=== PATIENT | male | born 1970 | race Caucasian/White ===

== ENCOUNTER → 2022-05-12 12:43 | Outpatient (BNVA) | payer OTHER, SELFPAY | PROVIDERS: PCP Internal Medicine; Visit Provider Internal Medicine | DX: M79.18 Myalgia, other site (principal) | CPT/HCPCS: 99202 ==

== ENCOUNTER → 2022-05-19 09:59 | Outpatient (BNVA) | payer OTHER, SELFPAY | PROVIDERS: PCP Internal Medicine; Visit Provider Internal Medicine | DX: S46.211A Strain of muscle, fascia and tendon of other parts of biceps, right arm, initial encounter (principal); X58.XXXA Exposure to other specified factors, initial encounter | CPT/HCPCS: 99213 ==

== ENCOUNTER → 2022-05-27 07:59 | Outpatient (BNVA) | payer OTHER, SELFPAY | PROVIDERS: PCP Internal Medicine; Visit Provider Internal Medicine | DX: M79.18 Myalgia, other site (principal) | CPT/HCPCS: 99213 ==

== ENCOUNTER 2022-05-27 11:54 | Outpatient (REF) | payer OTHER, SELFPAY ==
--- NOTE | ~2022-05-27 | MR_ITS ---
EXAMINATION: MRI OF THE RIGHT ELBOW WITHOUT CONTRAST CLINICAL INFORMATION: Lifting injury. [place] pop. Pain distal biceps. Evaluate for tear. COMPARISON: None TECHNIQUE: MRI of the right elbow was performed without contrast high-field MRI scanner. FINDINGS: muscles/tendons: There is a complete versus high-grade insertional tear of the distal biceps tendon. The torn portion of the tendon is retracted approximately 10 mm . The retracted portion of the tendon is enlarged. There there may be a thin portion of tendon tissue versus fibrous tissue still attached to the radius. There is increased fluid in the bicipital radialis bursa. There is mild edema at the musculotendinous junction indicative of additional intramuscular partial tearing Common extensor tendon: Minimal heterogeneity compatible tendinosis. No measurable defect. Remaining muscles and tendons are normal. Ligaments: Normal. Bone/articular cartilage: Normal. Neurovascular structures: Normal. Subcutaneous soft tissues: Normal. MR/MR elbow RT wo con IMPRESSION: 1. Complete versus high-grade insertional tear of the distal biceps tendon with tendon retraction approximately 1 cm. Additional partial tearing 2. Minimal tendinosis of the common extensor tendon.
== END 2022-05-27 11:55 | disposition home or self-care (01) ==
LOC: HO.MRI 11:54
PROVIDERS: PCP Internal Medicine; Visit Provider Internal Medicine
DX: S46.201A Unspecified injury of muscle, fascia and tendon of other parts of biceps, right arm, initial encounter (principal); X58.XXXA Exposure to other specified factors, initial encounter; Y93.9 Activity, unspecified; Y92.9 Unspecified place or not applicable; Y99.9 Unspecified external cause status
CPT/HCPCS: 73221

== ENCOUNTER → 2025-01-01 14:15 | Outpatient (BNVA) | payer OTHER, SELFPAY | PROVIDERS: PCP Internal Medicine; Visit Provider Emergency Medicine | DX: S39.012A Strain of muscle, fascia and tendon of lower back, initial encounter (principal); X58.XXXA Exposure to other specified factors, initial encounter; M53.3 Sacrococcygeal disorders, not elsewhere classified | CPT/HCPCS: 99203 ==

== ENCOUNTER → 2025-01-07 13:46 | Outpatient (BNVA) | payer OTHER, SELFPAY | PROVIDERS: PCP Internal Medicine; Visit Provider Physician Assistant Medical | DX: S39.012D Strain of muscle, fascia and tendon of lower back, subsequent encounter (principal); X58.XXXD Exposure to other specified factors, subsequent encounter; M53.3 Sacrococcygeal disorders, not elsewhere classified | CPT/HCPCS: 99213 ==

== ENCOUNTER → 2025-01-21 13:10 | Outpatient (BNVA) | payer OTHER, SELFPAY | PROVIDERS: PCP Internal Medicine; Visit Provider Emergency Medicine | DX: S39.012D Strain of muscle, fascia and tendon of lower back, subsequent encounter (principal); X50.0XXD Overexertion from strenuous movement or load, subsequent encounter; Z02.79 Encounter for issue of other medical certificate | CPT/HCPCS: 99213 ==